=== PATIENT | female | born 1990 | race Caucasian/White ===

== ENCOUNTER 2017-08-25 14:25 | Inpatient (IN) ==
[2017-08-25] MEDS ORDERED: BUTORPHANOL 2 MG/ML VIAL IV PRN (14:42)
[2017-08-25] MEDS ORDERED: MEPERIDINE 50 MG/1 ML VIAL IV PRN (14:42)
[2017-08-25] MEDS ORDERED: DINOPROSTONE VAG GEL 10 MG SYRINGE VAG ONE (14:43)
[2017-08-25 15:03] LABS: Basophils % 0.1 % (0.0-0.8); Eosinophils # 0.1 10*3/uL (0.0-0.87); Eosinophils % 0.9 % (0.00-10.9); Hematocrit 34.8 VOL% (35.7-47.0); Hemoglobin 11.1 GM/DL (12.0-16.0); Immature Granulocytes % 0.9 %; Immature Granulocytes Absolute 0.07 #; Lymphocytes # 1.3 10*3/uL (1.4-4.0); Lymphocytes % 17.6 % (21.3-54.2); Mean Corpuscular HGB Conc 31.9 GM/DL (32-36); Mean Corpuscular Hemoglobin 27 PG (27-34); Mean Corpuscular Volume 84.7 FL (87-102); Mean Platelet Volume 11.6 FL (9.6-12.0); Monocytes # 0.8 10*3/uL (0.11-0.8); Neutrophils # 5.4 10*3/uL (1.4-7.4); Neutrophils % 70.5 % (38.7-73.9); Platelet Count 188 T/CUMM (130-400); Red Blood Count 4.11 MC/CUMM (3.8-5.5); Red Cell Distribution Width 14.7 % (9.3-17.3); White Blood Count 7.6 T/CUMM (4-12)
[2017-08-25] MEDS: LACTATED RINGERS 1,000 ML IV SCH (15:03)
[2017-08-25] MEDS ORDERED: WITCH HAZEL PADS 100/JAR TOP PRN (19:44)
[2017-08-25] MEDS: ONDANSETRON 4 MG/2 ML VIAL IV PRN (21:16)
[2017-08-26] MEDS: BUTORPHANOL 1 MG/ML VIAL IV PRN ×2 (01:03→05:37)
[2017-08-26] MEDS: OXYTOCIN/LR 20 UNIT/1,000 ML BAG IV SCH ×2 (02:13→12:59)
[2017-08-26] MEDS: LACTATED RINGERS 1,000 ML IV SCH ×2 (05:37→12:54)
[2017-08-26] MEDS ORDERED: LACTATED RINGERS 1,000 ML IV ONE (08:33)
[2017-08-26] MEDS ORDERED: PROMETHAZINE 25 MG/1 ML VIAL IM ONE (08:33)
[2017-08-26] MEDS ORDERED: ePHEDrine 50 MG/ML AMP IV PRN (08:33)
[2017-08-26] MEDS ORDERED: diphenhydrAMINE 50 MG/1 ML VIAL IV PRN ×2 (08:33)
[2017-08-26] MEDS ORDERED: CITRIC ACID/SODIUM CITRATE 30 ML UDCUP PO ONE (08:33)
[2017-08-26] MEDS ORDERED: FAMOTIDINE 20 MG/2 ML VIAL IV ONE (08:33)
[2017-08-26] MEDS ORDERED: hydrOXYzine HCL 25 MG/1 ML VIAL IM PRN (08:33)
[2017-08-26] MEDS ORDERED: fentaNYL 2 MCG/ROPIV 0.2% EPID 150 ML EPIDURAL SCH (09:00)
[2017-08-26 10:48] LABS: Apearance,Urine CLEAR (Clear); Bilirubin,Urine Negative (Negative); Blood, Urine Negative (Negative); Glucose,Urine (UA) Negative (Negative); Ketones,Urine Negative (Negative); Mucus,Urine Occasional /LPF (Occasional); Nitrite,Urine Negative (Negative); Protein,Urine Negative; RBC,Urine 1 /HPF (0-4); Squamous Epithelial Cell,Urine Occasional /HPF (0-10); Urine Color Yellow (Yellow); Urine Specific Gravity 1.012 (1.001-1.035); WBC,Urine 1 /HPF (0-6)
[2017-08-26] MEDS: ONDANSETRON 4 MG/2 ML VIAL IV PRN (13:50)
[2017-08-26] MEDS ORDERED: miSOPROStol 200 MCG TABLET ONE (16:53)
[2017-08-26] MEDS ORDERED: LIDOCAINE 1% 50 ML VIAL ONE (16:53)
[2017-08-26] MEDS ORDERED: METHYLERGONOVINE 0.2 MG/1 ML AMP ONE (16:54)
[2017-08-26 18:05] LABS: Cord Venous Blood PCO2 46.8 MMHG; Cord Venous Blood PO2 28.6
[2017-08-26] MEDS ORDERED: ACETAMINOPHEN 325 MG TABLET PO PRN (19:30)
[2017-08-26] MEDS ORDERED: ACETAMINOPHEN/CODEINE 300-30 MG TABLET PO PRN (19:30)
[2017-08-26] MEDS ORDERED: oxyCODONE/ACETAMINOPHEN 5-325 MG TABLET PO PRN ×2 (19:30)
[2017-08-26] MEDS ORDERED: LANOLIN 50% CREAM 0.3 OZ TUBE TOP PRN (19:30)
[2017-08-26] MEDS ORDERED: BENZOCAINE 20%/MENTHOL 0.5% SPRAY 56 GM CAN TOP PRN (19:30)
[2017-08-26] MEDS ORDERED: RHO(D) IMMUNE GLOBULIN 300 MCG SYRINGE IM ONE (19:30)
[2017-08-26] MEDS ORDERED: HYDROCORTISONE 2.5% RECTAL CREAM 30 GM TUBE TOP PRN (19:30)
[2017-08-26] MEDS ORDERED: WITCH HAZEL PADS 100/JAR TOP PRN (19:30)
[2017-08-26] MEDS ORDERED: MEASLES/MUMPS/RUBELLA VACCINE 0.5 ML VIAL SUBCUT ONE (19:30)
[2017-08-26] MEDS ORDERED: DIPH/TET/ACEL PERT BOOSTER VACCINE 0.5 ML VIAL IM ONE (19:30)
[2017-08-26] MEDS ORDERED: OXYTOCIN/LR 20 UNIT/1,000 ML BAG IV ONE (19:30)
[2017-08-26] MEDS ORDERED: BISACODYL 10 MG SUPP RECTAL PRN (19:30)
[2017-08-26] MEDS: DOCUSATE SODIUM 100 MG CAPSULE PO SCH (21:24)
[2017-08-27] MEDS ORDERED: ONDANSETRON 4 MG/2 ML VIAL IV PRN (00:07)
[2017-08-27] MEDS: IBUPROFEN 800 MG TABLET PO PRN ×3 (00:38→21:03)
[2017-08-27 07:27] LABS: Basophils % 0.2 % (0.0-0.8); Eosinophils # 0.1 10*3/uL (0.0-0.87); Hematocrit 33.8 VOL% (35.7-47.0); Hemoglobin 10.8 GM/DL (12.0-16.0); Immature Granulocytes % 0.7 %; Immature Granulocytes Absolute 0.07 #; Mean Corpuscular Hemoglobin 26 PG (27-34); Mean Corpuscular Volume 82.6 FL (87-102); Mean Platelet Volume 11.6 FL (9.6-12.0); Monocytes # 0.9 10*3/uL (0.11-0.8); Monocytes % 8.7 % (1.7-12.7); Neutrophils # 7.3 10*3/uL (1.4-7.4); Neutrophils % 70.4 % (38.7-73.9); Platelet Count 175 T/CUMM (130-400); Red Blood Count 4.09 MC/CUMM (3.8-5.5); White Blood Count 10.4 T/CUMM (4-12)
[2017-08-27] MEDS: DOCUSATE SODIUM 100 MG CAPSULE PO SCH ×2 (08:22→21:03)
[2017-08-27] MEDS: ONDANSETRON 4 MG TABLET PO PRN ×2 (11:52→21:03)
[2017-08-28 07:27] VITALS: BP 117/71
[2017-08-28] MEDS: DOCUSATE SODIUM 100 MG CAPSULE PO SCH (09:42)
[2017-08-28] MEDS: IBUPROFEN 800 MG TABLET PO PRN (09:44)
== END 2017-08-28 12:55 | disposition home or self-care (01) | DRG 560 ==
LOC: N.LDOUT 14:25 → N.LD 14:39 → N.OB 08-26 20:10
PROVIDERS: ADMIT Obstetrics & Gynecology; ATTEND Obstetrics & Gynecology